=== PATIENT | male | born 1995 | race Caucasian/White ===

== ENCOUNTER 2016-12-14 16:17 | Emergency (ER) | payer OTHER | END 2016-12-14 17:50 | disposition left against medical advice (07) | LOC: UCCORT 16:17 | DX: R07.0 Pain in throat (principal); Z53.20 Procedure and treatment not carried out because of patient's decision for unspecified reasons ==

== ENCOUNTER 2016-12-30 10:48 | Emergency (ER) | payer OTHER ==
[2016-12-30 11:10] VITALS: BP 150/70
--- NOTE | 2016-12-30 12:01 | UC ---
Throat Pain/Nasal Jagdeep HPI - HPI Summary HPI Summary: Patient has had sinus issues for the past two weeks, was treated with prednisone without good results, no cough, on and off fever. - History of Current Complaint Chief Complaint: UCRespiratory Stated Complaint: HEADACHE,SINUS,SORE THROAT,EAR PAIN,COUGH Time Seen by Provider: 12/30/16 11:41 Hx Obtained From: Patient Onset/Duration: Gradual Onset, Lasting Weeks Severity: Moderate Pain Intensity: 6 Pain Scale Used: 0-10 Numeric Cough: None Associated Signs & Symptoms: Positive: Sinus Discomfort, Nasal Discharge, Fever - Allergies/Home Medications Allergies/Adverse Reactions: Allergies Allergy/AdvReac Type Severity Reaction Status Date / Time A and D ointment Allergy Rash Uncoded 12/30/16 11:02 Home Medications: Home Medications Dextromethorphan-Phenylephrine [Daytime Multi-Symptom Col 10-5-325 mg/15Ml] 1 liq PO ONCE PRN 12/30/16 [History Confirmed 12/30/16] PMH/Surg Hx/FS Hx/Imm Hx Previously Healthy: Yes Respiratory History Of: Denies: Asthma - Surgical History Surgical History: None - Family History Known Family History: Positive: Cardiac Disease, Diabetes - Social History Alcohol Use: Occasionally Substance Use Type: None Smoking Status (MU): Never Smoked Tobacco Have You Smoked in the Last Year: No - Immunization History Most Recent Tetanus Shot: WITHIN 5 YEARS Review of Systems Constitutional: Fever ENT: Nasal Discharge Cardiovascular: Negative Gastrointestinal: Negative Genitourinary: Negative Motor: Negative Neurovascular: Negative Musculoskeletal: Negative Neurological: Headache Psychological: Negative All Other Systems Reviewed And Are Negative: Yes Physical Exam Triage Information Reviewed: Yes Appearance: Well-Nourished, Ill-Appearing, Pain Distress Vital Signs: Initial Vital Signs Temp 98.6 F 12/30/16 11:04 Pulse 69 12/30/16 11:04 Resp 18 12/30/16 11:04 BP 150/70 12/30/16 11:04 Pulse Ox 99 12/30/16 11:04 Vital Signs Reviewed: Yes Eye Exam: Normal Eyes: Positive: Conjunctiva Clear ENT: Positive: Pharyngeal erythema, Nasal congestion, Nasal drainage, TMs normal Dental Exam: Normal Neck exam: Normal Neck: Positive: Supple, Nontender, Enlarged Nodes @ - left cervical Respiratory Exam: Normal Respiratory: Positive: Chest non-tender, Lungs clear, Normal breath sounds Cardiovascular Exam: Normal Cardiovascular: Positive: RRR, No Murmur, Pulses Normal Abdominal Exam: Normal Abdomen Description: Positive: Nontender, No Organomegaly, Soft Musculoskeletal Exam: Normal Musculoskeletal: Positive: ROM Intact, No Edema Neurological Exam: Normal Neurological: Positive: Alert, Muscle Tone Normal Psychological Exam: Normal Skin Exam: Normal Throat Pain/Nasal Course/Dx - Course Course Of Treatment: hx obtained, exam performed, meds reviewedpast Hx of Luna and deviated septum, treated with ABX and prednisone - Differential Dx/Diagnosis Differential Diagnosis/HQI/PQRI: Influenza, Laryngitis, Pharyngitis, Sinusitis, Tonsillitis, URI Provider Diagnoses: Sinustits Discharge - Discharge Plan Condition: Stable Disposition: HOME Patient Education Materials: Sinusitis (ED) Additional Instructions: Take the medication as prescribed. Get plenty of rest and increase your fluid intake.
== END 2016-12-30 12:13 | disposition home or self-care (01) ==
LOC: UCCORT 10:48
DX: J32.9 Chronic sinusitis, unspecified (principal)
CPT/HCPCS: 87502; 87651; 99212; G0463

== ENCOUNTER 2017-01-10 16:12 | Emergency (ER) | payer OTHER ==
[2017-01-10 17:22] VITALS: BP 144/55
--- NOTE | 2017-01-10 18:06 | UC ---
Skin Complaint HPI - HPI Summary HPI Summary: lam is here with mother for hives on his right hip. he use hydrocortisone with good results. there are some red jacome noted, but he had pictures of the hives before hydrocortisone was applied. no other signs or symptoms. - History of Current Complaint Chief Complaint: UCSkin Time Seen by Provider: 01/10/17 17:28 Stated Complaint: RASH/HIVES Hx Obtained From: Patient Onset/Duration: Sudden Onset, Lasting Hours Skin Exposure Onset/Duration: Hours Ago Timing: Constant Onset Severity: Mild Current Severity: Mild Pain Intensity: 0 Location: Discrete Character: Hives Aggravating: Nothing Alleviating: OTC Meds Associated Signs & Symptoms: Positive: Negative - Allergy/Home Medications Allergies/Adverse Reactions: Allergies Allergy/AdvReac Type Severity Reaction Status Date / Time A and D ointment Allergy Rash Uncoded 01/10/17 17:21 Home Medications: Home Medications Hydrocortisone (Topical) [Hydrocortisone] 1 % EX DAILY 01/10/17 [History Confirmed 01/10/17] hydrOXYzine HCL TAB* [Atarax TAB*] 10 mg PO QID PRN 01/10/17 [History Confirmed 01/10/17] Review of Systems Constitutional: Negative Skin: Other - hives Eyes: Negative ENT: Negative Respiratory: Negative Cardiovascular: Negative Gastrointestinal: Negative Genitourinary: Negative Motor: Negative Neurovascular: Negative Musculoskeletal: Negative Neurological: Negative Psychological: Anxious All Other Systems Reviewed And Are Negative: Yes PMH/Surg Hx/FS Hx/Imm Hx Previously Healthy: Yes Respiratory History Of: Denies: Asthma - Surgical History Surgical History: None - Family History Known Family History: Positive: Cardiac Disease, Diabetes - Social History Alcohol Use: Occasionally Substance Use Type: None Smoking Status (MU): Never Smoked Tobacco Have You Smoked in the Last Year: No - Immunization History Most Recent Tetanus Shot: WITHIN 5 YEARS Physical Exam Triage Information Reviewed: Yes Appearance: Well-Appearing, Well-Nourished, Pain Distress Vital Signs: Initial Vital Signs Temp 97.1 F 01/10/17 17:16 Pulse 93 01/10/17 17:16 Resp 16 01/10/17 17:16 BP 144/55 01/10/17 17:16 Pulse Ox 99 01/10/17 17:16 Vital Signs Reviewed: Yes Eye Exam: Normal Eyes: Positive: Conjunctiva Clear ENT Exam: Normal ENT: Positive: Normal ENT inspection, Hearing grossly normal, Pharynx normal, TMs normal Dental Exam: Normal Neck exam: Normal Neck: Positive: Supple, Nontender, No Lymphadenopathy Respiratory Exam: Normal Respiratory: Positive: Chest non-tender, Lungs clear, Normal breath sounds Cardiovascular Exam: Normal Cardiovascular: Positive: RRR, No Murmur, Pulses Normal Abdominal Exam: Normal Abdomen Description: Positive: Nontender, No Organomegaly, Soft Bowel Sounds: Positive: Present Musculoskeletal Exam: Normal Musculoskeletal: Positive: Strength Intact, ROM Intact, No Edema Neurological Exam: Normal Neurological: Positive: Alert, Muscle Tone Normal Psychological: Positive: Other: - patient extremely anxious, worried the hives will come back, he denies any pruritis or pain, denies SOB, worried that he is breathing to well and it feel euphoric. Skin: Positive: Other - small red areas on right hip, non raised. Course/Dx - Course Course Of Treatment: hx obtained, exam performed, meds reviewed, educated on treatment of hive, reassured patient that his lungs were fine and that takeing deep breaths were good. patient has PRN atarax for anxiety - Differential Diagnoses - Skin Complaint Differential Diagnoses: Abscess, Anaphylaxis, Cellulitis, Urticaria - Diagnoses Provider Diagnoses: urticaria. anxiety Discharge - Discharge Plan Condition: Stable Disposition: HOME Patient Education Materials: Urticaria (ED) Referrals: Non Staff,Doctor [Primary Care Provider] - Additional Instructions: Use the hydrocortisone and benadryl as needed for the hives. heat may exacerbate them. Cool showers or washclothes will help soothe if needed. They are not contagious. If they are not causing pain, leave them alone. Follow up with any worsening symptoms such as respiratory distress or facial swelling.
== END 2017-01-10 18:14 | disposition home or self-care (01) ==
LOC: UCCORT 16:12
DX: L50.9 Urticaria, unspecified (principal); F41.9 Anxiety disorder, unspecified; Z88.8 Allergy status to other drugs, medicaments and biological substances
CPT/HCPCS: 99211; G0463

== ENCOUNTER 2017-03-18 12:38 | Emergency (ER) | payer OTHER ==
[2017-03-18 13:07] VITALS: BP 129/72
--- NOTE | 2017-03-18 13:18 | UC ---
Throat Pain/Nasal Jagdeep HPI - HPI Summary HPI Summary: sinus pain and pressure x 7 days + nasal congestion , cough , pnd no fever, no chills - History of Current Complaint Chief Complaint: UCRespiratory Stated Complaint: SINUS COMPLAINT Time Seen by Provider: 03/18/17 13:10 Hx Obtained From: Patient Onset/Duration: Gradual Onset, Lasting Days - 7, Still Present Severity: Moderate Cough: Nonproductive Associated Signs & Symptoms: Positive: Sinus Discomfort, Nasal Discharge. Negative: Wheezing, Hoarseness, Fever, Rash - Allergies/Home Medications Allergies/Adverse Reactions: Allergies Allergy/AdvReac Type Severity Reaction Status Date / Time A and D ointment Allergy Rash Uncoded 03/18/17 13:01 PMH/Surg Hx/FS Hx/Imm Hx Previously Healthy: Yes Respiratory History Of: Denies: Asthma - Surgical History Surgical History: None - Family History Known Family History: Positive: Cardiac Disease, Diabetes - Social History Alcohol Use: Occasionally Substance Use Type: None Smoking Status (MU): Never Smoked Tobacco Have You Smoked in the Last Year: No - Immunization History Most Recent Tetanus Shot: WITHIN 5 YEARS Review of Systems Constitutional: Negative Skin: Negative Eyes: Negative ENT: Sore Throat, Ear Ache, Nasal Discharge Respiratory: Cough Cardiovascular: Negative Gastrointestinal: Negative Genitourinary: Negative All Other Systems Reviewed And Are Negative: Yes Physical Exam Triage Information Reviewed: Yes Appearance: Well-Appearing, No Pain Distress, Well-Nourished Vital Signs: Initial Vital Signs Temp 98.7 F 03/18/17 13:02 Pulse 79 03/18/17 13:02 Resp 14 03/18/17 13:02 BP 129/72 03/18/17 13:02 Pulse Ox 98 03/18/17 13:02 Vital Signs Reviewed: Yes Eye Exam: Normal Eyes: Positive: Conjunctiva Clear ENT: Positive: Normal ENT inspection, Hearing grossly normal, Pharyngeal erythema, Nasal congestion, Nasal drainage, TMs normal. Negative: TM bulging, TM dull, TM red Neck: Positive: Supple Respiratory: Positive: Chest non-tender, Lungs clear, Normal breath sounds Cardiovascular: Positive: RRR, No Murmur, Pulses Normal Skin Exam: Normal Throat Pain/Nasal Course/Dx - Differential Dx/Diagnosis Provider Diagnoses: sinusitis Discharge - Discharge Plan Condition: Stable Disposition: HOME Prescriptions: Azithromycin TAB* [Zithromax TAB (Z-JIMI) 250 mg #6 tabs] 2 tab PO .TODAY, THEN 1 DAILY #1 jimi Patient Education Materials: Sinusitis (ED) Referrals: Non Staff,Doctor [Primary Care Provider] - If Needed
== END 2017-03-18 13:20 | disposition home or self-care (01) ==
LOC: UCCORT 12:38
DX: J32.9 Chronic sinusitis, unspecified (principal)
CPT/HCPCS: 99212; G0463